=== PATIENT | male | born 1950 | race Caucasian/White ===

== ENCOUNTER 2016-11-10 01:58 | Emergency (ER) | payer MEDICARE | END 2016-11-10 05:00 | disposition home or self-care (01) | LOC: D.ER 01:58 | DX: T15.02XA Foreign body in cornea, left eye, initial encounter (principal); X58.XXXA Exposure to other specified factors, initial encounter; Y93.89 Activity, other specified; Y92.89 Other specified places as the place of occurrence of the external cause ==